=== PATIENT | female | born 1965 | race African-American/Black ===

== ENCOUNTER 2024-06-11 14:12 | Emergency (ER) | payer BC ==
[~2024-06-11] VITALS: Ht 160 cm; Wt 66.0 kg
[2024-06-11 14:32] VITALS: TEMP 98.3; O2SAT 98
[2024-06-11 16:11] LABS: HEMATOCRIT 41.3 % (36.0-48.0); HEMOGLOBIN 14.4 g/dL (12.0-16.0); MEAN CORPUSCULAR HGB CONC 34.9 g/dL (31.0-37.0); MEAN CORPUSCULAR VOLUME 88.7 fL (81.0-99.0); PLATELET 376 x1000/uL (130-400); RED BLOOD CELL COUNT 4.66 mill/uL (4.2-5.4); RED CELL DISTRIBUTION WIDTH 14.5 % (11.6-14.6); WHITE BLOOD COUNT 9.9 x1000/uL (4.5-11.0)
[2024-06-11 16:18] LABS: CHLORIDE 102 mEq/L (98-107); POTASSIUM 3.7 mEq/L (3.5-5.1); SODIUM 137 mEq/L (136-145)
[2024-06-11 16:19] LABS: CALCIUM 9.8 mg/dL (8.7-10.4); CARBON DIOXIDE 30 mEq/L (21-32)
[2024-06-11 16:24] LABS: GLUCOSE 142 mg/dL (70-105); UREA NITROGEN BLOOD 9 mg/dL (9-23)
[2024-06-11] MEDS: METOPROLOL SUCCINATE 50MG ER TABLET PO ONE (17:55)
[2024-06-11] MEDS: KETOROLAC 15MG/ML VIAL IV ONE (17:56)
[2024-06-11] MEDS: ACETAMINOPHEN 650MG/20.3ML UDC PO ONE (17:56)
[2024-06-11 19:05] VITALS: BP 196/114; PULSE 91; RESP 16; O2SAT 98
== END 2024-06-11 19:28 | disposition home or self-care (01) ==
LOC: ER 14:26
DX: I10 Essential (primary) hypertension (principal); E11.9 Type 2 diabetes mellitus without complications; Z90.710 Acquired absence of both cervix and uterus; Z98.890 Other specified postprocedural states; Z85.9 Personal history of malignant neoplasm, unspecified
CPT/HCPCS: 80048; 85027; 36415; 71045; 70450; 93005; 99285; Z7610